=== PATIENT | male | born 1995 ===

== ENCOUNTER 2019-01-02 17:38 | Emergency (ER) | payer BC ==
[2019-01-02] MEDS ORDERED: NS 1,000 ML IV ONE (18:33)
[2019-01-02] MEDS ORDERED: KETOROLAC 30 MG/1 ML SDV IVP ONE (18:44)
[2019-01-02] MEDS ORDERED: DEXAMETHASONE 10 MG/ML VIAL IVP ONE (18:44)
[2019-01-02] MEDS ORDERED: ONDANSETRON 4 MG/2 ML VIAL ONE (18:47)
--- NOTE | 2019-01-02 18:53 | EDPHY ---
H & P Time Seen by Provider: 01/02/19 18:01 HPI/ROS: HPI Fatigue, headache, muscle and joint aches. 43-year-old male by private vehicle. This patient has history of bipolar disorder. He started taking lithium about 3 weeks ago. He reports that for the last 1-2 days he has felt unusually fatigued low on energy. He also complains of an intermittent gradual onset headache which he describes as frontal and temporal. He describes having a sore throat and muscle aches and joint aches as well. Generalized back and neck soreness. He describes having intermittent blurry vision. No cough. No difficulty swallowing. He is concerned that his lithium levels may be too high. He also reports having a rash on the dorsal aspects of his hands. ROS: Constitutional: No fever, no chills. As above. Eyes: No discharge. As above. ENT: As above. No nasal congestion or rhinorrhea. Respiratory: No cough. No shortness of breath. Cardiac: No chest pain, no palpitations. Gastrointestinal: No abdominal pain, no vomiting, no diarrhea. Genitourinary: No hematuria. No dysuria or increased frequency with urination. Musculoskeletal: As above. Skin: As above. Neurological: As above. No focal weakness or altered sensation. Past medical history: Bipolar. Medications include Lamictal, bupropion, lithium. Social history: Student [employer]. Nonsmoker. No alcohol. Here by himself. Physical Exam: General Appearance: Alert, no distress. This patient is responding to questions appropriately and in full sentences. This patient appears well- hydrated and well-nourished. Eyes: Pupils equal and round no pallor or injection. No photophobia. No nystagmus. No lid edema, erythema or injection. ENT, Mouth: Mucous membranes are moist. Mild frontal arch erythema. No edema or swelling. No asymmetry suggestive of abscess. No exudates. No voice changes. No significant cervical, submandibular, submental lymphadenopathy. Respiratory: There are no retractions, lungs are clear to auscultation with good air movement bilaterally. meant to kick me out. Cardiovascular: Regular rate and rhythm. Borderline tachycardia. No murmur. Gastrointestinal: Abdomen is soft and nontender, no masses, bowel sounds normal. No focal tenderness at McBurney's point. No Zhang sign. Neurological: Motor sensory function is grossly intact. Cranial nerves are normal. Gait is normal. Skin: Warm and dry, he has a subtle rash on the dorsal aspect of his hands, this involves small and scant erythematous blanching patches no more than half a cm to a cm in diameter. No petechiae. Musculoskeletal: Neck is supple. He does not have significant pain on flexion of his neck. Extremities are symmetrical. All joints range without pain or impingement. Psychiatric: No agitation. No depression. Database: EKG: Imaging: Procedures: Emergency department course: Triage vital signs reviewed. He is afebrile. Mildly tachycardic. Vital signs are otherwise normal. IV was placed. He was placed on a monitor. He was started on IV normal saline with 1 L to be given over the next hour. His presentation is consistent with a viral syndrome versus mononucleosis/ influenza. A lithium level will be obtained. He does not have any contraindications to NSAIDs. No history of renal dysfunction or peptic ulcer disease. He will be given 30 mg of IV Toradol and 10 mg of IV Decadron for sore throat and headache. 8:00 p.m., the patient was re-evaluated, resting comfortably at this time. He is feeling better. His tachycardia has resolved. He has remained afebrile. Repeat neurologic Assessment is nonfocal. His neck is supple. No significant pain with flexion of his neck. I discussed the results of his emergency department workup. I feel his presentation is consistent with a viral syndrome. I feel meningitis, encephalitis or unlikely. Mononucleosis testing and influenza testing were both negative. He feels comfortable going home at this time and I feel he is safe for discharge with strict return precautions. He will follow up at the [facility] in the next 1-2 days for re-evaluation. Return to emergency department precautions were reviewed thoroughly with him. All of his questions were answered. He was discharged from the emergency department in good condition. Differential Diagnosis: The differential diagnosis on this patient includes but is not limited to lithium reaction, viral syndrome, influenza, mononucleosis. Retropharyngeal abscess, peritonsillar abscess, tracheitis, epiglottitis, meningitis, encephalitis unlikely. This represents a partial list of diagnoses considered. These considerations are based on history, physical exam, past history, reassessment and diagnostic testing. Smoking Status: Current some day smoker Constitutional: Initial Vital Signs Temperature (C) 37 C 01/02/19 17:43 Heart Rate 102 H 01/02/19 17:43 Respiratory Rate 17 01/02/19 17:43 Blood Pressure 148/79 H 01/02/19 17:43 O2 Sat (%) 99 01/02/19 17:43 O2 Delivery Mode Room Air Allergies/Adverse Reactions: erythromycin base Allergy (Verified 01/02/19 17:42) Penicillins Allergy (Verified 01/02/19 17:42) Home Medications: Medication Instructions Recorded LaMICtal 01/02/19 [place] Carbonate 01/02/19 buPROPion 01/02/19 Medical Decision Making - Data Points Laboratory Results: Laboratory Results 01/02/19 18:55 01/02/19 18:55 Medications Given: Discontinued Medications Dexamethasone (Decadron Injection) 10 mg IVP EDNOW ONE Stop: 01/02/19 18:45 Last Admin: 01/02/19 19:04 Dose: 10 mg Sodium Chloride (Ns) 1,000 mls @ 0 mls/hr IV EDNOW ONE; Wide Open PRN Reason: Protocol Stop: 01/02/19 18:34 Last Admin: 01/02/19 19:03 Dose: 1,000 mls Ketorolac Tromethamine (Toradol) 30 mg IVP EDNOW ONE Stop: 01/02/19 18:45 Last Admin: 01/02/19 19:04 Dose: 30 mg Departure - Departure Disposition: Home, Routine, Self-Care Clinical Impression: Viral syndrome Condition: Good Instructions: Viral Syndrome (ED) Additional Instructions: Read and follow provided instructions. Follow-up with your primary care physician at the [facility] in the next 1-2 days for re-evaluation as discussed. Stay well hydrated. Drink lots of fluids. Get plenty of rest. Ibuprofen dosin mg every 6 hours with meals for the next 3 days only. Take only as needed for pain. Most important, return to the emergency department for worsening symptoms, worsening sore throat, headache, neck pain, fever, vomiting or other serious concerns. Referrals: STEVE Morris,. [Clinic] - As per Instructions
[2019-01-02 19:05] LABS: PLATELET COUNT 308 10^3/uL (150-400)
[2019-01-02 19:24] LABS: CREATINE KINASE 413 IU/L (0-224)
[2019-01-02 20:59] VITALS: BP 117/77
== END 2019-01-02 21:00 | disposition home or self-care (01) ==
DX: B34.9 Viral infection, unspecified (principal); E86.9 Volume depletion, unspecified
CPT/HCPCS: 96374; J1100; J1885; J2405

== ENCOUNTER 2019-01-04 20:59 | Emergency (ER) | payer BC ==
--- NOTE | 2019-01-04 21:12 | EDPHY ---
H & P Stated Complaint: WAS SEEN [place] [facility] [place], NOW DIF BREATHING FACE SWELLING Time Seen by Provider: 01/04/19 21:12 - Personal History Current Tetanus/Diphtheria Vaccine: Yes Current Tetanus Diphtheria and Acellular Pertussis (TDAP): Yes - Medical/Surgical History Hx Asthma: No Hx Chronic Respiratory Disease: No Hx Diabetes: No Hx Cardiac Disease: No Hx Renal Disease: No Hx Cirrhosis: No Hx Alcoholism: No Hx HIV/AIDS: No Hx Splenectomy or Spleen Trauma: No Other PMH: CHICKEN POX 01/08 - Social History Smoking Status: Current some day smoker Constitutional: Initial Vital Signs Temperature (C) 37.1 C 01/04/19 21:05 Heart Rate 83 01/04/19 21:05 Respiratory Rate 16 01/04/19 21:05 Blood Pressure 134/68 H 01/04/19 21:05 O2 Sat (%) 100 01/04/19 21:05 O2 Delivery Mode Room Air Allergies/Adverse Reactions: erythromycin base Allergy (Verified 01/04/19 21:07) Penicillins Allergy (Verified 01/04/19 21:07) Home Medications: Medication Instructions Recorded LaMICtal 01/02/19 [place] Carbonate 01/02/19 buPROPion 01/02/19 Ibuprofen 600 mg PO 01/04/19 diphenhydrAMINE [Benadryl 50 MG 01/04/19 (*)] methylPREDNISolone [Medrol Dose 1 each PO AD #1 ea 01/04/19 Dong] Medical Decision Making ED Course/Re-evaluation: CHIEF COMPLAINT: Worsening rash and tongue swelling HISTORY OF PRESENT ILLNESS: The patient is a 23 y/o male complaining of a worsening rash and tongue swelling. Around 2 days ago he presented to the emergency department for fatigue , headache, muscle and joint aches. There were not significant findings and he was given Toradol and Decadron for his symptoms. He was not prescribed any antibiotics. Today he presented to an urgent care and diagnosed with chicken pox. He was vaccinated for chicken pox. After presenting to the urgent care his rash and facial swelling worsened and he started having shortness of breath due to the facial swelling. As his symptoms did not improve he decided to present to the emergency department. No fever, headache, body aches, lightheadedness, chest pain, heart palpitations, shortness of breath, cough, abdominal pain, urinary or bowel complaints, numbness, paresthesias. REVIEW OF SYSTEMS: A comprehensive 10 system review of systems is otherwise negative aside from elements mentioned in the history of present illness and medical decision making. PHYSICAL EXAM: HR, BP, O2 Sat, RR. Temp noted General Appearance: Alert, well hydrated, appropriate, and non-toxic appearing. Head: Facial swelling. Atraumatic without scalp tenderness or obvious injury Eyes: Swollen and erythematic. Pupils equal, round, reactive to light and accommodation, EOMI, no trauma, no injection. Ears: Clear bilaterally, no perforation, normal landmarks Nose: Atraumatic, no rhinorrhea, clear. Throat: Oropharyngeal erythema There is no exudates, no lesions, normal tonsils , mucus membranes moist. Neck: Supple, 2+ carotid upstroke, nontender, no lymphadenopathy. Respiratory: No retractions, no distress, no wheezes, and no accessory muscle use. Lungs are clear to auscultation bilaterally. Cardiovascular: Regular rate and rhythm, no murmurs, rubs, or gallops. Bilateral carotid, radial, dorsalis pedis, and posterior tibial pulses intact. Good capillary refill all extremities. Gastrointestinal: Abdomen is soft, nontender, non-distended, no masses, no rebound, no guarding, no peritoneal signs. Musculoskeletal: Normal active ROM of all extremities, atraumatic. Neurological: Alert, appropriate, and interactive. The patient has normal DTRs and non-focal cranial nerves, motor, sensory, and cerebellar exam. Skin: Scattered pustules and scabs. No confluence, consistency, or erythematic base with blisters. Good turgor, no nodules on palpation. Past medical history: Denies Past surgical history: Denies Family history: Denies Social history: Lives in [place], student at , single DIAGNOSTICS/PROCEDURES/CRITICAL CARE TIME: Not indicated DIFFERENTIAL DIAGNOSIS: The differential diagnosis for the patient's rash included but was not limited to viral syndrome, chicken pox, allergic reaction, bacterial infection. MEDICAL DECISION MAKING: The patient is a 23 y/o male presenting with a worsening rash and tongue swelling. There were no significant findings during an ER visit 2 days ago where he received Decadron. Today he went to an urgent care and was diagnosed with chicken pox, however his symptoms worsened. On exam he has scattered pustules and scabs. There is confluence or consistent rash with erythematic base and blisters; which would be consistent with chicken pox. The patient also has welling to his eyes and face and erythema without exudates to his eyes and throat. The rash is on his hand, feet, and mouth. His symptoms are consistent with a viral xanthin. 60mg PO Prednisone and 25mg PO Benadryl administered. I have also prescribed him a Medrol-dose pack and advised him to follow up with his PCP. Return precautions provided; patient is comfortable with this plan. Departure - Departure Disposition: Home, Routine, Self-Care Clinical Impression: Viral syndrome, Rash Condition: Good Instructions: Acute Rash (ED), Viral Syndrome (ED) Additional Instructions: 1. Take the Medrol dose pack as prescribed. 2. Follow-up with your primary doctor within 72 hours. 3. Use [id number] Benadryl as directed for itching. 4. Return to the Emergency Department for shortness of breath, difficulty swallowing, difficulty breathing, worsening of rash, fever or other worsening of condition. Referrals: STEVE Morris,. [Clinic] - As per Instructions Prescriptions: methylPREDNISolone [Medrol Dose Dong] 1 each PO AD #1 ea Report Scribed for: Ernie Mercedes Report Scribed by: Angie Campbell Date of Report: 01/04/19 Time of Report: 21:29
[2019-01-04] MEDS ORDERED: predniSONE 20 MG TAB PO ONE (21:24)
[2019-01-04] MEDS ORDERED: diphenhydrAMINE 25 MG CAP PO ONE (21:27)
[2019-01-04 21:39] VITALS: BP 124/70
== END 2019-01-04 21:54 | disposition home or self-care (01) ==
DX: B34.9 Viral infection, unspecified (principal); R21 Rash and other nonspecific skin eruption; F17.200 Nicotine dependence, unspecified, uncomplicated
CPT/HCPCS: J7512